=== PATIENT | female | born 1955 | race Caucasian/White ===

== ENCOUNTER → 2017-08-29 | Outpatient (CLI) | payer OTHER | LOC: M.RAD 14:04 | DX: S97.82XD Crushing injury of left foot, subsequent encounter (principal); M25.775 Osteophyte, left foot; X58.XXXD Exposure to other specified factors, subsequent encounter ==

== ENCOUNTER → 2017-09-08 | Outpatient (CLI) | payer OTHER | LOC: M.RAD 12:45 | DX: Z12.31 Encounter for screening mammogram for malignant neoplasm of breast (principal) ==

== ENCOUNTER → 2017-11-08 | Outpatient (CLI) | payer OTHER ==
--- NOTE | 2017-11-08 16:57 | EXE ---
[place] [address] STRESS ECHOCARDIOGRAM Name: BRITTNY SORENSEN Room: [facility]#: [id number] Admission: 11/08/17 Attend Phys: Duane Dave, Discharge: Date of : 59 Date of Service: 11/08/17 1657 Report #: [id number] THIS REPORT FOR: //name// APPROVED REPORT Study performed: 11/08/2017 11:28:06 Exam: Stress Echocardiogram Indication: Chest pain Patient Location: Out-Patient Stress Nurse: Edna Salas RN Supervising Physician: Sae Ellis MD Status: routine Ht: 5 ft 7 in HR: 52 bpm BP: 131/75 mmHg Medical History Cardiac Risk Factors: Tobacco History (Current/Recent) Procedure The patient underwent an Exercise Stress Test using the Jonathan Protocol. Blood pressure, heart rate, and EKG were monitored. An Echocardiogram was performed by electrical/instrument technician in four stages in quad fashion. At peak stress, four selected images were obtained and placed side by side with resting images for comparison. Stress Test Details Stress Test: Exercise stress testing was performed using a Jonathan protocol. HR Resting HR: 52 bpm Max Heart Rate (APMHR): 160 bpm Max HR Achieved: 143 bpm Target HR (85% APMHR): 136 bpm % of APMHR: 89 Recovery HR: 60 bpm HR response to stress: Normal HR response to stress BP Resting BP: 131/75 mmHg Max BP: 182/62 mmHg Recovery BP: 155/66 mmHg ECG Resting ECG: Sinus Rhythm, LV[place] [address] STRESS ECHOCARDIOGRAM Name: BRITTNY SORENSEN Room: [facility]#: [id number] Admission: 11/08/17 Attend Phys: Duane Dave, Discharge: Date of : 59 Date of Service: 11/08/17 1657 Report #: [id number] Stress ECG: Sinus Rhythm, LVH with repolarization changes, Sinus Tachycardia ST Change: none Arrhythmia: None Recovery ECG: Sinus Rhythm, LVH with repolarization changes Recovery ST Change: none Recovery Arrhythmia: None Clinical Reason for Termination: Completed protocol, Maximal effort, Dyspnea Exercise duration: 7 min 24 sec Highest Stage Achieved: Stage 3: 3.4 mph at 14% grade. Exercise capacity: 9.19 METs The patient had no significant symptoms with standard Jonathan protocol exercise. Stress ECG Conclusion The baseline 12-lead EKG shows sinus rhythm. There is left ventricular hypertrophy with mild nonspecific ST segment depression noted. EKGs obtained during and post exercise showed sinus rhythm and sinus tachycardia with more pronounced nonspecific ST segment depression compared to baseline. There were no stress-induced arrhythmias. Pre-Stress Echo The resting Echocardiogram showed normal left ventricular contractility with an estimated Ejection Fraction of about 55-60%. Post-Stress Echo The stress Echocardiogram showed normal left ventricular contractility with an estimated Ejection Fraction of about >70%. Conclusion Clinical Response: Non-ischemic Exercise Capacity: Average Stress ECG Response: Indeterminant Stress Echo Images: Non-ischemic There are was no clinical symptoms to suggest ischemia. The stress echocardiogram was unremarkable. EKG changes noted were likely due to abnormalities on the baseline EKG. This is not a high risk study. Other Information Study Quality: [place] [address] STRESS ECHOCARDIOGRAM Name: BRITTNY SORENSEN Room: [facility]#: [id number] Admission: 11/08/17 Attend Phys: Duane Dave, Discharge: Date of : 59 Date of Service: 11/08/171656 Report #: [id number] <Conclusion> There are was no clinical symptoms to suggest ischemia. The stress echocardiogram was unremarkable. EKG changes noted were likely due to abnormalities on the baseline EKG. This is not a high risk study. <ELECTRONICALLY SIGNED> By: Duane Dave MD, [facility] 11/08/171656 56 56 Duane Dave MD, FACC /INF
== END ==
LOC: M.CRD 10:33
DX: R07.9 Chest pain, unspecified (principal); R07.2 Precordial pain